=== PATIENT | male | born 1965 | race Two or more races ===

== ENCOUNTER 2022-09-29 14:14 | Outpatient (CLI) | payer OTHER | END 2022-09-29 14:38 | disposition home or self-care (01) | LOC: MRI 14:14 | PROVIDERS: ATTEND Physical Medicine & Rehabilitation | DX: S86.111A Strain of other muscle(s) and tendon(s) of posterior muscle group at lower leg level, right leg, initial encounter (principal); M25.551 Pain in right hip | CPT/HCPCS: 73718 ==